=== PATIENT | male | born 1950 | race Caucasian/White ===

== ENCOUNTER 2016-03-05 06:39 | Day surgery (SDC) | payer OTHER ==
[~2016-03-05] VITALS: Ht 165.1 cm; Wt 90.3 kg
[~2016-03-05 06:39] MED LIST: ALLOPURINOL100 MG PO; ASPIRIN325 MG PO; Aspirin PO; Effient PO; Glucophage PO; HYDROCHLOROTHIA25 MG PO; HYTRIN10 MG PO; Hydrodiuril,Oretic,E PO; LIPITOR20 MG PO; LISINOPRIL20 MG PO; LOPRESSOR25 MG PO; METFORMIN HCL500 MG PO; SPIRIVA1 INHALATI IH; Tenormin PO; VENTOLIN HFA18 GM IH; VITAMIN B-6100 MG PO; Zestril,Prinivil PO; Zocor PO; Zyloprim PO
[2016-03-05 07:27] LABS: POINT-OF-CARE METER ID UU14174212
[2016-03-05 07:35] VITALS: BP 194/88
[2016-03-05 10:14] VITALS: BP 168/76
[2016-03-05 11:40] VITALS: BP 172/74
== END 2016-03-05 10:43 | disposition home or self-care (01) ==
LOC: SDC 06:39
PROVIDERS: Orthopaedic Surgery Hand Surgery
PROC: 01N53ZZ Release Median Nerve, Percutaneous Approach (ICD-10-PCS; principal; 2016-03-05)
DX: G56.02 Carpal tunnel syndrome, left upper limb (principal); Z79.82 Long term (current) use of aspirin; Z79.84 Long term (current) use of oral hypoglycemic drugs; I10 Essential (primary) hypertension; J44.9 Chronic obstructive pulmonary disease, unspecified; E11.9 Type 2 diabetes mellitus without complications; I25.10 Atherosclerotic heart disease of native coronary artery without angina pectoris; Z98.61 Coronary angioplasty status; E78.5 Hyperlipidemia, unspecified; M10.9 Gout, unspecified; Z82.49 Family history of ischemic heart disease and other diseases of the circulatory system; Z83.49 Family history of other endocrine, nutritional and metabolic diseases; Z83.3 Family history of diabetes mellitus; Z72.0 Tobacco use
CPT/HCPCS: 82948; G0480; J2250; J2405; J3010; S0020

== ENCOUNTER 2016-06-29 10:53 | Day surgery (SDC) | payer OTHER ==
[2016-06-29 12:09] LABS: POINT-OF-CARE METER ID UU13113696
[2016-07-01] MEDS ORDERED: KEFLEX500 MG PO (15:11)
== END 2016-06-29 17:03 | disposition home or self-care (01) ==
LOC: CATH 10:53
PROVIDERS: Internal Medicine Cardiovascular Disease
DX: I25.10 Atherosclerotic heart disease of native coronary artery without angina pectoris (principal); I10 Essential (primary) hypertension; J44.9 Chronic obstructive pulmonary disease, unspecified; Z79.82 Long term (current) use of aspirin; Z79.84 Long term (current) use of oral hypoglycemic drugs; Z79.899 Other long term (current) drug therapy; I45.10 Unspecified right bundle-branch block; Z95.5 Presence of coronary angioplasty implant and graft; Z98.61 Coronary angioplasty status; I51.9 Heart disease, unspecified; I77.810 Thoracic aortic ectasia
CPT/HCPCS: 82948; C1769; C1887; J1644; J2250; J3010

== ENCOUNTER 2016-07-07 05:36 | Inpatient (IN) | payer OTHER ==
[2016-07-07] VITALS (12 sets, daily range): BP systolic 100–137; BP diastolic 37–62
[~2016-07-07] VITALS: Ht 163.8 cm; Wt 90.3 kg
[~2016-07-07 05:36] MED LIST changes: +CLINDAMYCIN HC300 MG PO; +KEFLEX500 MG PO
[2016-07-07 06:12] LABS: POINT-OF-CARE METER ID UU14174212
[2016-07-07 06:31] LABS: CHLORIDE 101 mEq/L (99-109); POTASSIUM 4.7 mEq/L (3.7-5.4); SODIUM 138 mEq/L (136-147)
[2016-07-07 06:33] LABS: GLUCOSE 112 mg/dL (70-99)
[2016-07-07 06:34] LABS: ANION GAP 11 MEQ/L (2-14)
[2016-07-07 06:37] LABS: GFR ESTIMATE (CALCULATED) > 59 mL/min/
[2016-07-07 06:38] LABS: UREA NITROGEN (BUN) 14 mg/dL (9-23)
[2016-07-07] MEDS ORDERED: NORCO 5/3251 TABLET PO (10:56)
[2016-07-07 11:49] LABS: POINT-OF-CARE METER ID UU13113675
[2016-07-07 14:17] LABS: METH RESISTANT S AUREUS PCR NEGATIVE (NEGATIVE)
[2016-07-07 14:20] LABS: PROBE CHECK PASS; SPECIMEN PROCESSING CONTROL PASS
[2016-07-08] VITALS (11 sets, daily range): BP systolic 113–132; BP diastolic 29–58
== END 2016-07-08 10:36 | disposition home or self-care (01) | DRG 39 ==
LOC: 2SOUTH 05:36 → 4WEST 12:29 → 2SOUTH 14:57 → 4WEST 07-08 10:36
PROVIDERS: Surgery
PROC: 03CH0ZZ Extirpation of Matter from Right Common Carotid Artery, Open Approach (ICD-10-PCS; principal; 2016-07-07)
PROC: 0H96XZZ Drainage of Back Skin, External Approach (ICD-10-PCS; 2016-07-08)
DX: I65.21 Occlusion and stenosis of right carotid artery (principal); L72.8 Other follicular cysts of the skin and subcutaneous tissue; F17.210 Nicotine dependence, cigarettes, uncomplicated; I10 Essential (primary) hypertension; E11.9 Type 2 diabetes mellitus without complications; Z79.84 Long term (current) use of oral hypoglycemic drugs; E78.00 Pure hypercholesterolemia, unspecified; M10.9 Gout, unspecified; J44.9 Chronic obstructive pulmonary disease, unspecified; I25.10 Atherosclerotic heart disease of native coronary artery without angina pectoris; Z95.5 Presence of coronary angioplasty implant and graft
CPT/HCPCS: 80048; 82948; 85025; 86900; 86901; 86920; 87641; 88300; 94640; 94799; 99202; C1768; J0330; J0690; J1644; J2250; J2370; J2405; J2710; J2720; J2795; J3010; J7050; J7120

== ENCOUNTER 2017-07-13 05:34 | Day surgery (SDC) | payer OTHER ==
[~2017-07-13] VITALS: Ht 165.1 cm; Wt 89.3 kg
[~2017-07-13 05:34] MED LIST changes: +KLOR-CON M2020 MEQ PO; +LASIX40 MG PO; +MAGNESIUM250 M1 PO; +NICODERM CQ1 EAC2 TD; +NORCO 5/3251 TABLET PO
[2017-07-13 06:00] VITALS: BP 112/58
[2017-07-13 10:00] VITALS: BP 132/87
[2017-07-13 10:28] VITALS: BP 142/93
== END 2017-07-13 10:30 | disposition home or self-care (01) ==
LOC: SDC 05:34
PROVIDERS: Surgery
PROC: 0WUF0JZ Supplement Abdominal Wall with Synthetic Substitute, Open Approach (ICD-10-PCS; principal; 2017-07-13)
DX: K42.9 Umbilical hernia without obstruction or gangrene (principal); I10 Essential (primary) hypertension; E11.9 Type 2 diabetes mellitus without complications; E78.4 Other hyperlipidemia; J44.9 Chronic obstructive pulmonary disease, unspecified; Z95.5 Presence of coronary angioplasty implant and graft; Z79.84 Long term (current) use of oral hypoglycemic drugs; Z79.82 Long term (current) use of aspirin; F17.210 Nicotine dependence, cigarettes, uncomplicated
CPT/HCPCS: 82948; 94640; C1781; J0131; J0690; J1100; J1885; J2405; J2710; J3010; J7643; S0020